=== PATIENT | female | born 1960 | race Caucasian/White ===

== ENCOUNTER 2018-05-11 05:57 | Day surgery (SDC) | payer OTHER ==
[2018-05-11] MEDS ORDERED: Ketamine HCl 50 MG/ML IJ ONE (05:58)
[2018-05-11] MEDS ORDERED: DIPRIVAN 200 MG/20 ML IV ONE (05:58)
[2018-05-11] MEDS ORDERED: Lactated Ringers 1,000 ML IV SCH (06:30)
[2018-05-11 08:22] VITALS: O2SAT 100
[2018-05-11 08:51] VITALS: BP 131/86; PULSE 80
--- NOTE | 2018-05-11 12:33 | OP ---
SURGERY DATE/TIME: 05/11/2018 0658 PREOPERATIVE DIAGNOSIS: Abdominal bloating and screening exam of colon. POSTOPERATIVE DIAGNOSES: 1) Normal EGD. 2) Small polyp in the transverse colon. PROCEDURES: 1) Esophagogastroduodenoscopy. 2) Colonoscopy with biopsy. SURGEON: Dr. Self. ANESTHESIA: Medications were given by the anesthesia department. BRIEF HISTORY: The patient is a 57 year-old white female presenting now for complaints of abdominal discomfort and bloating in the epigastric region. She has not had a previous colon checkup. She was suggested to have screening colon exam during the procedure as well. The patient was appraised of the risks of the procedure including the risk of perforation, phlebitis, untoward reaction to medication, bleeding and missed lesions. The patient verbalized her understanding and desired to have the procedure performed. DESCRIPTION OF PROCEDURE: The patient was given the medications by the anesthesia department. She had continuous pulse oximetry, ECG monitoring, intermittent blood pressure monitoring and tidal CO2 monitoring during the examination. She was placed in the left lateral decubitus position. A bite block was placed and the flexible Olympus gastroscope was used to intubate the oropharynx. The scope was easily introduced in the esophagus which appeared to be normal throughout its length. The stomach was entered where normal gastric rugal folds were seen. The gastric melvin was suctioned dry and stomach was re-insufflated. There was normal distention of the gastric rugal folds with insufflation of air. The scope was passed along the greater curvature of the stomach to the antrum. The pylorus encountered and intubated. The duodenum inspected and found to be normal. The scope is withdrawn towards the stomach. A retroflex view was obtained of the lesser curvature, fundus and cardia regions of the stomach and these appeared to be normal. The scope was then removed from the patient. Next, a digital rectal examination was performed and revealed normal anal sphincter tone. External hemorrhoids were present. No masses were otherwise felt. The flexible Olympus pediatric colonoscope was used to intubate the rectum. A view of the colon was developed sequentially to the cecum. Upon insertion and withdrawal was noted a sessile polyp measuring approximately 0.75 x 1.5 cm. A cold biopsy was used with forceps to remove the polyp piecemeal. No other mucosal lesions being encountered, the scope was removed from the patient who tolerated the procedure well and was sent back to OP recovery in good condition. The prep was noted to be good.
== END 2018-05-11 08:56 | disposition home or self-care (01) ==
LOC: SDC 05:57
PROVIDERS: ATTEND Family Medicine
DX: Z12.11 Encounter for screening for malignant neoplasm of colon (principal); K63.5 Polyp of colon; R14.0 Abdominal distension (gaseous); K64.4 Residual hemorrhoidal skin tags
CPT/HCPCS: J2704

== ENCOUNTER 2020-03-04 11:13 | Emergency (ER) | payer OTHER ==
[2020-03-04 11:33] VITALS: BP 162/96; PULSE 104; O2SAT 99
[2020-03-04] MEDS ORDERED: TRUVADA 200 MG-300 MG TABLET PO STA (11:47)
[2020-03-04] MEDS ORDERED: Adacel Vial IM ONE ×2 (11:48→11:58)
--- NOTE | 2020-03-04 11:55 | ERPHSYRPT ---
- History of Present Illness Time Seen by Provider: 03/04/20 11:35 Source: patient Exam Limitations: no limitations Patient Subjective Stated Complaint: Needle stick Triage Nursing Assessment: Patient ambulated back to ED and transferred self to bed. Patient A+O X3. Patient's skin pink, warm and dry. 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 Patient denies pain or discomfort. 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 No history of any communicable diseases. Complaining of mild pain with palpation and movements. No bleeding. Unsure about tetanus status. Timing/Duration: today Severity: mild Modifying Factors: Improves With: cold therapy, rest. Worsens With: movement Associated Symptoms: denies symptoms Allergies/Adverse Reactions: meloxicam [From [employer]] Allergy (Severe, Verified 03/04/20 11:25) FACIAL SWELLING Home Medications: Alprazolam [Xanax] 0.5 mg PO QIDPRN PRN 07/20/14 [History] Citalopram Hydrobromide [ceLEXa] 20 mg PO DAILY 07/20/14 [History] Nebivolol HCl [Bystolic] 10 mg PO DAILY 07/20/14 [History] Hx Tetanus, Diphtheria Vaccination/Date Given: No Hx Influenza Vaccination/Date Given: Yes (2019) Hx Pneumococcal Vaccination/Date Given: No Immunizations Up to Date: Yes Travel Risk - International Travel Have you traveled outside of the country in past 3 weeks: No - Coronavirus Screening Are you exhibiting any of the following symptoms?: No Close contact with a COVID-19 positive Pt in past 14-21 Days: No - Review of Systems Constitutional: No Symptoms Eyes: No Symptoms Respiratory: No Symptoms Cardiac: No Symptoms Abdominal/Gastrointestinal: No Symptoms Musculoskeletal: No Symptoms Skin: No Symptoms Neurological: No Symptoms Psychological: No Symptoms - Past Medical History Pertinent Past Medical History: Yes Neurological History: No Pertinent History ENT History: No Pertinent History Cardiac History: Hypertension Respiratory History: No Pertinent History Endocrine Medical History: No Pertinent History Musculoskeletal History: No Pertinent History GI Medical History: No Pertinent History History: No Pertinent History Psycho-Social History: Anxiety, Depression Female Reproductive Disorders: No Pertinent History - Past Surgical History Past Surgical History: Yes Neuro Surgical History: No Pertinent History Cardiac: No Pertinent History Respiratory: No Pertinent History Gastrointestinal: Hemorrhoidectomy Genitourinary: No Pertinent History Musculoskeletal: No Pertinent History Female Surgical History: No Pertinent History Other Surgical History: HYMRJOID REMOVAL - Social History Smoking Status: Never smoker Exposure to second hand smoke: No Drug Use: none Patient Lives Alone: No - Female History Hx Now: No - Nursing Vital Signs Nursing Vital Signs: Initial Vital Signs Temperature 97.2 F 03/04/20 11:27 Pulse Rate 104 H 03/04/20 11:27 Respiratory Rate 18 03/04/20 11:27 Blood Pressure 162/96 03/04/20 11:27 O2 Sat by Pulse Oximetry 99 03/04/20 11:27 Pain Scale Pain Intensity 0 - Physical Exam General Appearance: no apparent distress Ears, Nose, Throat Exam: pharynx normal Neck Exam: normal inspection, full range of motion Respiratory Exam: normal breath sounds, lungs clear Cardiovascular Exam: regular rate/rhythm, normal heart sounds Extremity Exam: other (Mild erythema left and distal palm at base of index finger with the prick farhad. Minimal tenderness.) Neurologic Exam: alert, oriented x 3, cooperative Skin Exam: normal color SpO2 Interpretation: normal SpO2: 99 O2 Delivery: Room Air Ordered Tests: Active Orders 24 hr Category Date Time Status Wound Care STAT Care 03/04/20 11:32 Completed Medication Summary Discontinued Medications Generic Name Dose Route Start Last Admin Trade Name Freq PRN Reason Stop Dose Admin Diphtheria/Tetanus/Acell Pertussis 0.5 ml 03/04/20 11:48 03/04/20 11:59 Adacel Vial IM 03/04/20 11:49 0.5 ml .ONCE ONE Administration Diphtheria/Tetanus/Acell Pertussis Confirm 03/04/20 11:58 Adacel Vial Administered 03/04/20 11:59 Dose 0.5 ml IM .STK-MED ONE Emtricitabine/Tenofovir 1 tablet 03/04/20 11:47 03/04/20 12:00 Truvada 200 Mg-300 Mg Tablet PO 03/04/20 11:48 Not Given STAT STA Emtricitabine/Tenofovir 2 tablet 03/05/20 10:00 03/04/20 12:01 Truvada 200 Mg-300 Mg Tablet PO 03/06/20 10:01 2 tablet DAILY RAY Administration Raltegravir 400 mg 03/04/20 12:00 03/04/20 12:01 Isentress PO 04/03/20 11:59 400 mg STAT RAY Administration Raltegravir 400 mg 03/04/20 22:00 03/04/20 12:00 Isentress PO 03/06/20 22:01 400 mg BID RAY Administration - Progress Progress: unchanged Progress Note: 03/04/20 11:49 She is started on Isentress and Truvada per protocol and lab work is drawn. Patient is advised to follow-up with primary care and employee health. Counseled pt/family regarding: lab results, diagnosis, need for follow-up - Departure Departure Disposition: Home Clinical Impression: Needle stick injury of finger of left hand Condition: Stable Critical Care Time: No Referrals: ANDRES MURILLO, [ACTIVE STAFF] - (tomorrow for re evaluation) Instructions: Blood or Body Fluid Exposure Additional Instructions: Follow-up with your primary care physician and employee health for reevaluation. Continue with these medications until you see them in 2 days. Return to ER for any worsening.
[2020-03-04] MEDS ORDERED: ISENTRESS PO SCH ×2 (12:00→22:00)
[2020-03-05] MEDS ORDERED: TRUVADA 200 MG-300 MG TABLET PO SCH (10:00)
== END 2020-03-04 12:05 | disposition home or self-care (01) ==
LOC: ER - EH 11:13
DX: S61.231A Puncture wound without foreign body of left index finger without damage to nail, initial encounter (principal); W46.0XXA Contact with hypodermic needle, initial encounter; Y92.238 Other place in hospital as the place of occurrence of the external cause; Y99.0 Civilian activity done for income or pay
CPT/HCPCS: 36415; 86317; 86701; 86702; 86803; 87340; 87389; 87535; 90471; 90715; 99283

== ENCOUNTER 2020-04-30 09:53 | Emergency (ER) | payer OTHER ==
[2020-04-30] MEDS ORDERED: Sodium Chloride 0.9% 1000 ML 1,000 ML ONE (10:12)
[2020-04-30] MEDS ORDERED: Sodium Chloride 0.9% 1000 ML 1,000 ML IV SCH (10:15)
--- NOTE | 2020-04-30 10:15 | ERPHSYRPT ---
- History of Present Illness Time Seen by Provider: 04/30/20 10:00 Source: patient Patient Subjective Stated Complaint: pt here at work and started feeling like heart was racing,light headed. she states it happened at home today before wokr but went away on own Triage Nursing Assessment: pt alert, resp easy, face mask in place, walked in. skin w/d/p Physician History: Patient is a 59-year-old female who presents to our ED with complaints of near syncope and heart palpitations. Symptoms started yesterday. Patient states she felt dizzy yesterday. Today patient experienced heart palpitations lightheadedness and shortness of breath. Symptoms started this morning and persisted. No actual syncopal episode. No nausea or vomiting. No diarrhea. No rash. Patient denies [place] chest pain. Patient symptoms are mild to moderate in intensity. No specific worsening or improving factors. Patient voices no other complaints or concerns at this time. Timing/Duration: yesterday Severity: moderate Modifying Factors: Improves With: nothing Associated Symptoms: shortness of breath, No cough, No chills, No chest pain, No loss of appetite Allergies/Adverse Reactions: meloxicam [From [email or web address]] Allergy (Severe, Verified 04/30/20 10:02) FACIAL SWELLING Home Medications: Alprazolam [Xanax] 0.5 mg PO QIDPRN PRN 07/20/14 [History] Citalopram Hydrobromide [ceLEXa] 20 mg PO DAILY 07/20/14 [History] Amlodipine Besylate 1 ea DAILY 04/30/20 [History] Quetiapine Fumarate 1 ea DAILY 04/30/20 [History] Hx Tetanus, Diphtheria Vaccination/Date Given: No Hx Influenza Vaccination/Date Given: Yes Hx Pneumococcal Vaccination/Date Given: No Immunizations Up to Date: Yes Travel Risk - International Travel Have you traveled outside of the country in past 3 weeks: No - Coronavirus Screening Are you exhibiting any of the following symptoms?: No Close contact with a COVID-19 positive Pt in past 14-21 Days: No - Review of Systems Constitutional: No Symptoms, No Fever, No Chills Eyes: No Symptoms Ears, Nose, & Throat: No Symptoms Respiratory: No Symptoms, No Cough, No Dyspnea Cardiac: No Symptoms, No Chest Pain, No Edema, No Syncope Abdominal/Gastrointestinal: No Symptoms, No Abdominal Pain, No Nausea, No Vomiting, No Diarrhea Genitourinary Symptoms: No Symptoms, No Dysuria Musculoskeletal: No Symptoms, No Back Pain, No Neck Pain Skin: No Symptoms, No Rash Neurological: No Symptoms, No Dizziness, No Focal Weakness, No Sensory Changes Psychological: No Symptoms Endocrine: No Symptoms Hematologic/Lymphatic: No Symptoms Immunological/Allergic: No Symptoms All Other Systems: Reviewed and Negative - Past Medical History Pertinent Past Medical History: Yes Neurological History: No Pertinent History ENT History: No Pertinent History Cardiac History: High Cholesterol, Hypertension Respiratory History: No Pertinent History Endocrine Medical History: No Pertinent History Musculoskeletal History: No Pertinent History GI Medical History: No Pertinent History History: No Pertinent History Psycho-Social History: Anxiety, Depression Female Reproductive Disorders: No Pertinent History - Past Surgical History Past Surgical History: Yes Neuro Surgical History: No Pertinent History Cardiac: No Pertinent History Respiratory: No Pertinent History Gastrointestinal: Hemorrhoidectomy Genitourinary: No Pertinent History Musculoskeletal: No Pertinent History Female Surgical History: No Pertinent History Other Surgical History: HYMRJOID REMOVAL - Social History Smoking Status: Never smoker Exposure to second hand smoke: No Drug Use: none Patient Lives Alone: No - Female History Hx Last Menstrual Period: post Hx Now: No - Nursing Vital Signs Nursing Vital Signs: Initial Vital Signs Temperature 98.4 F 04/30/20 09:57 Pulse Rate 150 H 04/30/20 09:57 Respiratory Rate 18 04/30/20 09:57 Blood Pressure 105/83 04/30/20 09:57 O2 Sat by Pulse Oximetry 100 04/30/20 09:57 Pain Scale Pain Intensity 0 - Physical Exam General Appearance: no apparent distress, alert Eye Exam: PERRL/EOMI, eyes nml inspection Ears, Nose, Throat Exam: normal ENT inspection, TMs normal, pharynx normal, moist mucous membranes Neck Exam: normal inspection, non-tender, supple, full range of motion Respiratory Exam: normal breath sounds, lungs clear, No respiratory distress Cardiovascular Exam: normal heart sounds, normal peripheral pulses, other (She has a resting tachycardia. Peripheral pulses are bilaterally equal.) Gastrointestinal/Abdomen Exam: soft, normal bowel sounds, No tenderness, No mass Back Exam: normal inspection, normal range of motion, No CVA tenderness, No vertebral tenderness Extremity Exam: normal inspection, normal range of motion, pelvis stable Neurologic Exam: alert, oriented x 3, cooperative, normal mood/affect, sensation nml, No motor deficits Skin Exam: normal color, warm, dry, No rash Lymphatic Exam: No adenopathy SpO2 Interpretation: normal SpO2: 100 O2 Delivery: Room Air - Course Nursing assessment & vital signs reviewed: Yes EKG Interpreted by Me: RATE ([id number]), Sinus Tach, NORMAL AXIS, NORMAL INTERVALS - Radiology Exams Chest X-ray Interpretation: Teleradiologist Report (Portable chest x-ray unchanged demonstrating minimal right upper lobe fibrosis scarring. Remaining heart and lungs are unremarkable. Bony thorax intact. No new acute findings.) Ordered Tests: Active Orders 24 hr Category Date Time Status Combination Building Inspector STAT Care 04/30/20 10:09 Active EKG-ER Only STAT Care 04/30/20 10:08 Active IV Insertion STAT Care 04/30/20 10:08 Active Pulse Oximetry (ED) STAT Care 04/30/20 10:08 Active CHEST 1 VIEW (PORTABLE) Stat Exams 04/30/20 11:04 Completed CBC W DIFF Stat Lab 04/30/20 10:00 Completed CMP Stat Lab 04/30/20 10:00 Completed D-DIMER QUANTITATIVE Stat Lab 04/30/20 10:00 Completed MAGNESIUM Stat Lab 04/30/20 10:00 Completed TROPONIN Q3H Lab 04/30/20 10:00 Completed TROPONIN Q3H Lab 04/30/20 13:15 Ordered TROPONIN Q3H Lab 04/30/20 16:15 Ordered TROPONIN Q3H Lab 04/30/20 19:15 Ordered TROPONIN Q3H Lab 04/30/20 22:15 Ordered TSH, 3RD Generation Stat Lab 04/30/20 10:00 Completed UA W/RFX UR CULTURE Stat Lab 04/30/20 11:00 Completed Medication Summary Generic Name Dose Route Start Last Admin Trade Name Freq PRN Reason Stop Dose Admin Sodium Chloride 1,000 mls @ 100 mls/hr 04/30/20 10:15 04/30/20 10:13 Sodium Chloride 0.9% 1000 Ml IV 05/30/20 10:14 100 mls/hr .Q10H RAY Administration Magnesium Sulfate/Dextrose 100 mls @ 100 mls/hr 04/30/20 11:45 04/30/20 13:00 Magnesium 1 Gm / 100 Ml D5w IV 04/30/20 13:44 100 mls/hr Q1H RAY Administration Discontinued Medications Generic Name Dose Route Start Last Admin Trade Name Patricia PRN Reason Stop Dose Admin Potassium Chloride 40 meq 04/30/20 11:33 04/30/20 11:37 Klor Con 10 Meq PO 04/30/20 11:34 40 meq STAT ONE Administration Potassium Chloride Confirm 04/30/20 11:37 Klor Con 10 Meq Administered 04/30/20 11:38 Dose 40 meq PO .STK-MED ONE Lab/Rad Data: Laboratory Result Diagrams 04/30/20 10:00 04/30/20 10:00 Laboratory Results 04/30/20 04/30/20 04/30/20 Range/Units 11:00 10:00 10:00 WBC (4.0-10.5) K/mm3 RBC (4.1-5.4) M/mm3 Hgb (12.0-16.0) gm/dl Hct (35-47) % MCV (78-100) fl MCH (26-32) pg MCHC (32-36) g/dl RDW (11.5-14.0) % Plt Count (150-450) K/mm3 MPV (7.5-11.0) fl Gran % (36.0-66.0) % Eos # (Auto) (0-0.5) Absolute Lymphs (auto) (1.0-4.6) Absolute Monos (auto) (0.0-1.3) Lymphocytes % (24.0-44.0) % Monocytes % (0.0-12.0) % Eosinophils % (0.00-5.0) % Basophils % (0.0-0.4) % Absolute Granulocytes (1.4-6.9) Basophils # (0-0.4) D-Dimer < 215 L (215-500) ng/mL Sodium (137-145) mmol/L Potassium (3.5-5.1) mmol/L Chloride (98-107) mmol/L Carbon Dioxide (22-30) mmol/L Anion Gap (5-15) MEQ/L BUN (7-17) mg/dL Creatinine (0.52-1.04) mg/dL Estimated GFR ML/MIN Glucose (74-106) mg/dL Calcium (8.4-10.2) mg/dL Magnesium (1.6-2.3) mg/dL Total Bilirubin (0.2-1.3) mg/dL AST (14-36) U/L ALT (0-35) U/L Alkaline Phosphatase (38-126) U/L Troponin I < 0.012 (0.000-0.034) ng/mL Serum Total Protein (6.3-8.2) g/dL Albumin (3.5-5.0) g/dL TSH 3rd Generation (0.47-4.68) mIU/L Urine Color YELLOW (YELLOW) Urine Appearance CLEAR (CLEAR) Urine pH 5.0 (5-6) Ur Specific [place] 1.005 (1.005-1.025) Urine Protein NEGATIVE (Negative) Urine Ketones NEGATIVE (NEGATIVE) Urine Blood NEGATIVE (0-5) Pio/ul Urine Nitrite NEGATIVE (NEGATIVE) Urine Bilirubin NEGATIVE (NEGATIVE) Urine Urobilinogen NEGATIVE (0-1) mg/dL Ur Leukocyte Esterase NEGATIVE (NEGATIVE) Urine WBC (Auto) 3-5 (0-5) /HPF Urine RBC (Auto) NONE (0-2) /HPF U Hyaline Cast (Auto) 6-10 (0-2) /LPF U Epithel Cells (Auto) NONE (FEW) /HPF Urine Bacteria (Auto) NONE (NEGATIVE) /HPF Urine Mucus (Auto) SLIGHT (NEGATIVE) /HPF Urine Culture Reflexed NO (NO) Urine Glucose NEGATIVE (NEGATIVE) mg/dL 04/30/20 04/30/20 Range/Units 10:00 10:00 WBC 8.0 (4.0-10.5) K/mm3 RBC 4.83 (4.1-5.4) M/mm3 Hgb 15.5 (12.0-16.0) gm/dl Hct 48.3 H (35-47) % MCV 100.0 (78-100) fl MCH 32.1 H (26-32) pg MCHC 32.1 (32-36) g/dl RDW 13.5 (11.5-14.0) % Plt Count 381 (150-450) K/mm3 MPV 10.5 (7.5-11.0) fl Gran % 72.5 H (36.0-66.0) % Eos # (Auto) 0.10 (0-0.5) Absolute Lymphs (auto) 1.50 (1.0-4.6) Absolute Monos (auto) 0.57 (0.0-1.3) Lymphocytes % 18.7 L (24.0-44.0) % Monocytes % 7.1 (0.0-12.0) % Eosinophils % 1.2 (0.00-5.0) % Basophils % 0.5 (0.0-0.4) % Absolute Granulocytes 5.80 (1.4-6.9) Basophils # 0.04 (0-0.4) D-Dimer (215-500) ng/mL Sodium 135 L (137-145) mmol/L Potassium 3.0 L (3.5-5.1) mmol/L Chloride 102 (98-107) mmol/L Carbon Dioxide 22 (22-30) mmol/L Anion Gap 13.9 (5-15) MEQ/L BUN 26 H (7-17) mg/dL Creatinine 1.47 H (0.52-1.04) mg/dL Estimated GFR 38.9 ML/MIN Glucose 168 H (74-106) mg/dL Calcium 10.3 H (8.4-10.2) mg/dL Magnesium 1.6 (1.6-2.3) mg/dL Total Bilirubin 0.80 (0.2-1.3) mg/dL AST 25 (14-36) U/L ALT 14 (0-35) U/L Alkaline Phosphatase 79 (38-126) U/L Troponin I (0.000-0.034) ng/mL Serum Total Protein 8.2 (6.3-8.2) g/dL Albumin 4.7 (3.5-5.0) g/dL TSH 3rd Generation 4.580 (0.47-4.68) mIU/L Urine Color (YELLOW) Urine Appearance (CLEAR) Urine pH (5-6) Ur Specific [place] (1.005-1.025) Urine Protein (Negative) Urine Ketones (NEGATIVE) Urine Blood (0-5) Pio/ul Urine Nitrite (NEGATIVE) Urine Bilirubin (NEGATIVE) Urine Urobilinogen (0-1) mg/dL Ur Leukocyte Esterase (NEGATIVE) Urine WBC (Auto) (0-5) /HPF Urine RBC (Auto) (0-2) /HPF U Hyaline Cast (Auto) (0-2) /LPF U Epithel Cells (Auto) (FEW) /HPF Urine Bacteria (Auto) (NEGATIVE) /HPF Urine Mucus (Auto) (NEGATIVE) /HPF Urine Culture Reflexed (NO) Urine Glucose (NEGATIVE) mg/dL - Progress Progress: improved Progress Note: 04/30/20 13:[address] Vargas. Our plan was to rehydrate patient replace electrolytes and reassess. Upon rehydration tachycardia resolved. Patient feels well. No indication for further work-up at this time. Will discharge home. Patient agrees to follow-up with Dr. Vargas within 48 hours for reevaluation. Patient voices no other complaints or concerns at this time. - Departure Departure Disposition: Home Clinical Impression: Hypokalemia, Tachycardia, Acute renal injury, Dehydration Condition: Stable Critical Care Time: No Referrals: EMPLOYEE [facility] [facility] [LOCATION] - Additional Instructions: Discharge/Care Plan SMILEY CULVER was seen on 04/30/20 in the Emergency Room. The patient was counseled regarding Diagnosis,Lab results, Imaging studies, need for follow up and when to return to the Emergency Room. Prescriptions given: Discharge Note I have spoken with the patient and/or caregivers. I have explained the patient's condition, diagnosis and treatment plan based on the information available to me at this time. I have answered the patient's and/or caregiver's questions and addressed any concerns. The patient and/or caregivers have as good understanding of the patient's diagnosis, condition and treatment plan as can be expected at this point. The vital signs have been stable. The patient's condition is stable and appropriate for discharge from the emergency department. The patient will pursue further outpatient evaluation with the primary care ph ysician or other designated or consulting physician as outlined in the discharge instructions. The patient and/or caregivers are agreeable to this plan of care and follow-up instructions have been explained in detail. The patient and/or caregivers have received these instruction. The patient/and or caregivers are aware that any significant change in condition or worsening of symptoms should prompt an immediate return to this or the closest emergency department or call 911.
[2020-04-30 10:33] LABS: BASOPHIL % 0.5 % (0.0-0.4); Basophil (Absolute #) 0.04 (0-0.4); Eosinophil % 1.2 % (0.00-5.0); Hematocrit 48.3 % (35-47); Hemoglobin 15.5 gm/dl (12.0-16.0); Lymphocytes % 18.7 % (24.0-44.0); Mean Corpuscular Hemoglobin 32.1 pg (26-32); Mean Corpuscular Hgb Concent. 32.1 g/dl (32-36); Mean Platelet Volume 10.5 fl (7.5-11.0); Monocyte (Absolute #) 0.57 (0.0-1.3); Monocytes % 7.1 % (0.0-12.0); Neutrophil % 72.5 % (36.0-66.0); Platelet Count 381 K/mm3 (150-450); Red Blood Count 4.83 M/mm3 (4.1-5.4); Red Cell Distribution Width 13.5 % (11.5-14.0)
[2020-04-30 11:10] LABS: ALBUMIN 4.7 g/dL (3.5-5.0); ANION GAP 13.9 MEQ/L (5-15); BILIRUBIN,TOTAL 0.8 mg/dL (0.2-1.3); Calcium 10.3 mg/dL (8.4-10.2); Creatinine 1 1.47 mg/dL (0.52-1.04); EST GLOMERULAR FILTRATION RATE 38.9 ML/MIN; MAGNESIUM 1.6 mg/dL (1.6-2.3); TSH, 3RD Generation 4.58 mIU/L (0.47-4.68); Total Protein 8.2 g/dL (6.3-8.2)
[2020-04-30 11:16] LABS: Appearance CLEAR (CLEAR); Bilirubin NEGATIVE (NEGATIVE); Blood NEGATIVE Ery/ul (0-5); Glucose NEGATIVE (NEGATIVE); Ketones NEGATIVE (NEGATIVE); Leukocyte Esterase NEGATIVE (NEGATIVE); Mucus SLIGHT /HPF (NEGATIVE); Nitrite NEGATIVE (NEGATIVE); Protein,Urine Dip NEGATIVE (Negative); Specific Gravity 1.005 (1.005-1.025); Urobilinogen NEGATIVE mg/dL (0-1)
[2020-04-30] MEDS ORDERED: Klor Con 10 MEQ PO ONE ×2 (11:33→11:37)
[2020-04-30] MEDS ORDERED: Magnesium 1 Gm / 100 Ml D5W*** 100 ML IV ONE ×2 (11:59→12:59)
[2020-04-30] MEDS: Magnesium 1 Gm / 100 Ml D5W*** 100 ML IV SCH ×2 (12:00→13:00)
[2020-04-30 12:36] VITALS: O2SAT 100
--- NOTE | 2020-04-30 12:42 | XRAY ---
Indication: Short of breath. Tachycardia. Comparison: September 16, 2018. Portable chest unchanged again demonstrating minimal right upper lung fibrosis/scarring. Remaining heart and lungs unremarkable. Bony thorax intact. No new/acute findings.
[2020-04-30 13:37] VITALS: BP 136/92; PULSE 91
== END 2020-04-30 13:30 | disposition home or self-care (01) ==
LOC: ED 09:53
DX: E87.6 Hypokalemia (principal); R00.0 Tachycardia, unspecified; N17.9 Acute kidney failure, unspecified; E86.0 Dehydration
CPT/HCPCS: 36000; 36415; 71045; 80053; 81001; 83735; 84443; 84484; 85025; 85379; 93005; 93041; 94760; 96360; 96361; 96365; 96366; 99284; J3475; A9270-GY

== ENCOUNTER 2020-07-31 08:50 | Emergency (ER) | payer OTHER ==
[2020-07-31] MEDS ORDERED: Sodium Chloride 0.9% 1000 ML 1,000 ML IV STA ×2 (09:32→10:56)
[2020-07-31] MEDS ORDERED: Sodium Chloride 0.9% 1000 ML 1,000 ML ONE ×2 (09:46→10:54)
--- NOTE | 2020-07-31 09:47 | ERPHSYRPT ---
- History of Present Illness Source: patient Exam Limitations: no limitations Patient Subjective Stated Complaint: Pt's heart rate was elevated and she became dizzy while at work Triage Nursing Assessment: Pt working here at [employer] and became dizzy when her heart rate became elevated, tachycardic, denies pain, denies numbness or tingling, skin n/w/d, pulses normal, denies hx of heart issues, doesn't appear to be in any distress Physician History: 59 yo wf w lightheadedness x3.5hr. 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 She was also mildly dizzy but denies chest pain/focal weakness/N/V/melena/hematochezia. Pt states that she is mildly dyspneic and has been mild diaphoretic. She ran out of her Bystolic on 07/27/20 and has taken Norvasc x2 days which was an old Rx. She had similar symptoms when taking Norvasc in the past. Pt tachycardic at 120 w systolic BP of 92. Timing/Duration: hour(s) (3.5Hr) Severity: mild Baseline/Normal Cognition: alert oriented x 3 Current Cognition: alert oriented x 3 Baseline Gait: walks w/o assistance Associated Symptoms: No confusion, No fatigue, No fever, No chills, No loss of consciousness, No nausea, No vomiting, No weakness, No insomnia, No muscle spasms, No numbness/tingling in legs/feet, No paresthesia, No ringing in ears, No seizures, No slurred speech, No trouble walking, No vision changes, No chest pain, No headache Allergies/Adverse Reactions: meloxicam [From Mobic] Allergy (Severe, Verified 07/31/20 09:00) FACIAL SWELLING Home Medications: Alprazolam [Xanax] 0.5 mg PO QIDPRN PRN 07/20/14 [History] Citalopram Hydrobromide [ceLEXa] 20 mg PO DAILY 07/20/14 [History] Cyclobenzaprine HCl 10 mg [Cyclobenzaprine 10 MG] 20 mg PO DAILY 07/31/20 [History] Levothyroxine Sodium 50 Mcg [Synthroid 50 Mcg] 50 mcg PO DAILY 07/31/20 [History] Nebivolol HCl [Bystolic] 2.5 mg PO DAILY 07/31/20 [History] Hx Tetanus, Diphtheria Vaccination/Date Given: No Hx Influenza Vaccination/Date Given: Yes Hx Pneumococcal Vaccination/Date Given: No Travel Risk - International Travel Have you traveled outside of the country in past 3 weeks: No - Coronavirus Screening Are you exhibiting any of the following symptoms?: No Close contact with a COVID-19 positive Pt in past 14-21 Days: No - Review of Systems Constitutional: No Symptoms Eyes: No Symptoms Ears, Nose, & Throat: No Symptoms Respiratory: Dyspnea (Mild) Cardiac: No Symptoms Abdominal/Gastrointestinal: No Symptoms Genitourinary Symptoms: No Symptoms Musculoskeletal: No Symptoms Skin: No Symptoms Neurological: Other (Lightheadedness/Mild diaphoresis) Psychological: No Symptoms Endocrine: No Symptoms Hematologic/Lymphatic: No Symptoms Immunological/Allergic: No Symptoms - Past Medical History Pertinent Past Medical History: Yes Neurological History: No Pertinent History ENT History: No Pertinent History Cardiac History: High Cholesterol, Hypertension Respiratory History: No Pertinent History Endocrine Medical History: No Pertinent History Musculoskeletal History: No Pertinent History GI Medical History: No Pertinent History History: No Pertinent History Psycho-Social History: Anxiety, Depression Female Reproductive Disorders: No Pertinent History - Past Surgical History Past Surgical History: Yes Neuro Surgical History: No Pertinent History Cardiac: No Pertinent History Respiratory: No Pertinent History Gastrointestinal: Hemorrhoidectomy Genitourinary: No Pertinent History Musculoskeletal: No Pertinent History Female Surgical History: No Pertinent History Other Surgical History: HYMRJOID REMOVAL - Social History Smoking Status: Never smoker Exposure to second hand smoke: No Drug Use: none Patient Lives Alone: No Significant Family History: no pertinent family hx - Female History Hx Now: No - Nursing Vital Signs Nursing Vital Signs: Initial Vital Signs Pulse Rate 138 H 07/31/20 08:54 Blood Pressure 121/88 07/31/20 08:54 O2 Sat by Pulse Oximetry 98 07/31/20 08:54 Pain Scale Pain Intensity 0 - [place] Coma Scale Best Eye Response ([place]): (4) open spontaneously Best Verbal Response ([place]): (5) oriented Best Motor Response ([place]): (6) obeys commands [place] Total: 15 - Physical Exam General Appearance: no apparent distress Eye Exam: bilateral eye: normal inspection, PERRL, EOMI Ears, Nose, Throat Exam: normal ENT inspection, TMs normal, pharynx normal, moist mucous membranes Neck Exam: normal inspection, non-tender, supple, full range of motion, No meningismus, No mass, No Brudzinski, No Kernig's Respiratory: normal breath sounds, lungs clear, airway intact Cardiovascular: regular rate/rhythm, normal heart sounds, normal peripheral pulses, No murmur Gastrointestinal: soft, normal bowel sounds, No tenderness Pelvic Exam: not done Back Exam: normal inspection, normal range of motion, No CVA tenderness, No vertebral tenderness Extremity Exam: normal inspection, normal range of motion Peripheral Pulses: carotid (R): 2+, carotid (L): 2+ Mental Status: alert, oriented x 3, cooperative, No agitated card maker Exam: normal hearing, normal speech, PERRL, No abnormal gag reflex Coordination/Gait: normal finger to nose, normal gait, normal cerebellar function, negative Romberg's sign Motor/Sensory: no motor deficit, no sensory deficit, no pronator drift, negative Babinski's sign DTR: bicep (R): 2+, bicep (L): 2+, knee (R): 2+, knee (L): 2+ Skin Exam: normal color, warm, dry, No rash SpO2 Interpretation: normal SpO2: 98 O2 Delivery: Room Air - Course EKG Interpreted by Me: RATE (Sinus tach/Normal QT-QTc/Non-specific ST-T wave changes) - Radiology Exams Chest X-ray Interpretation: Discussed w/ radiologist (Nothing acute) - CT Exams Head CT Interpretation: Discussed w/radiologist (Nothing acute) Ordered Tests: Active Orders 24 hr Category Date Time Status 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 STAT Care 07/31/20 09:33 Completed IV Insertion STAT Care 07/31/20 09:32 Completed CHEST 1 VIEW (PORTABLE) Stat Exams 07/31/20 09:33 Completed HEAD WITHOUT CONTRAST [CT] Stat Exams 07/31/20 09:34 Completed CBC W DIFF Stat Lab 07/31/20 09:46 Completed CMP Stat Lab 07/31/20 09:46 Completed NT PRO BNP Stat Lab 07/31/20 09:46 Completed PROTIME WITH INR Stat Lab 07/31/20 09:46 Completed PTT Stat Lab 07/31/20 09:46 Completed TROPONIN Q3H Lab 07/31/20 09:46 Completed TROPONIN Q3H Lab 07/31/20 13:00 Completed Medication Summary Discontinued Medications Generic Name Dose Route Start Last Admin Trade Name Patricia PRN Reason Stop Dose Admin Sodium Chloride 1,000 mls @ 999 mls/hr 07/31/20 09:32 07/31/20 10:53 Sodium Chloride 0.9% 1000 Ml IV 07/31/20 10:32 Infused .Q1H1M STA Infusion Sodium Chloride Confirm 07/31/20 09:46 Sodium Chloride 0.9% 1000 Ml Administered 07/31/20 09:47 Dose 1,000 mls @ ud .ROUTE .STK-MED ONE Sodium Chloride Confirm 07/31/20 10:54 Sodium Chloride 0.9% 1000 Ml Administered 07/31/20 10:55 Dose 1,000 mls @ ud .ROUTE .STK-MED ONE Sodium Chloride 1,000 mls @ 999 mls/hr 07/31/20 10:56 07/31/20 12:21 Sodium Chloride 0.9% 1000 Ml IV 07/31/20 11:56 Infused .Q1H1M STA Infusion Lab/Rad Data: Laboratory Result Diagrams 07/31/20 09:46 07/31/20 09:46 Laboratory Results 07/31/20 07/31/20 07/31/20 Range/Units 13:00 09:46 09:46 WBC (4.0-10.5) K/mm3 RBC (4.1-5.4) M/mm3 Hgb (12.0-16.0) gm/dl Hct (35-47) % MCV (78-100) fl MCH (26-32) pg MCHC (32-36) g/dl RDW (11.5-14.0) % Plt Count (150-450) K/mm3 MPV (7.5-11.0) fl Gran % (36.0-66.0) % Eos # (Auto) (0-0.5) Absolute Lymphs (auto) (1.0-4.6) Absolute Monos (auto) (0.0-1.3) Lymphocytes % (24.0-44.0) % Monocytes % (0.0-12.0) % Eosinophils % (0.00-5.0) % Basophils % (0.0-0.4) % Absolute Granulocytes (1.4-6.9) Basophils # (0-0.4) PT 10.6 (9.95-12.35) SECONDS INR 0.94 (0.8-3.0) APTT 29.1 (25.3-37.0) SECONDS Sodium (137-145) mmol/L Potassium (3.5-5.1) mmol/L Chloride (98-107) mmol/L Carbon Dioxide (22-30) mmol/L Anion Gap (5-15) MEQ/L BUN (7-17) mg/dL Creatinine (0.52-1.04) mg/dL Estimated GFR ML/MIN Glucose (74-106) mg/dL Calcium (8.4-10.2) mg/dL Total Bilirubin (0.2-1.3) mg/dL AST (14-36) U/L ALT (0-35) U/L Alkaline Phosphatase (38-126) U/L Troponin I < 0.012 < 0.012 (0.000-0.034) ng/mL NT-Pro-B Natriuret Pep (0-900) pg/mL Serum Total Protein (6.3-8.2) g/dL Albumin (3.5-5.0) g/dL 07/31/20 07/31/20 Range/Units 09:46 09:46 WBC 7.3 (4.0-10.5) K/mm3 RBC 4.46 (4.1-5.4) M/mm3 Hgb 14.3 (12.0-16.0) gm/dl Hct 47.1 H (35-47) % MCV 105.6 H (78-100) fl MCH 32.1 H (26-32) pg MCHC 30.4 L (32-36) g/dl RDW 13.6 (11.5-14.0) % Plt Count 297 (150-450) K/mm3 MPV 10.9 (7.5-11.0) fl Gran % 68.6 H (36.0-66.0) % Eos # (Auto) 0.11 (0-0.5) Absolute Lymphs (auto) 1.54 (1.0-4.6) Absolute Monos (auto) 0.62 (0.0-1.3) Lymphocytes % 21.0 L (24.0-44.0) % Monocytes % 8.5 (0.0-12.0) % Eosinophils % 1.5 (0.00-5.0) % Basophils % 0.4 (0.0-0.4) % Absolute Granulocytes 5.03 (1.4-6.9) Basophils # 0.03 (0-0.4) PT (9.95-12.35) SECONDS INR (0.8-3.0) APTT (25.3-37.0) SECONDS Sodium 138 (137-145) mmol/L Potassium 4.1 (3.5-5.1) mmol/L Chloride 105 (98-107) mmol/L Carbon Dioxide 26 (22-30) mmol/L Anion Gap 12.0 (5-15) MEQ/L BUN 18 H (7-17) mg/dL Creatinine 1.47 H (0.52-1.04) mg/dL Estimated GFR 38.9 ML/MIN Glucose 106 (74-106) mg/dL Calcium 10.5 H (8.4-10.2) mg/dL Total Bilirubin 0.20 (0.2-1.3) mg/dL AST 20 (14-36) U/L ALT 11 (0-35) U/L Alkaline Phosphatase 73 (38-126) U/L Troponin I (0.000-0.034) ng/mL NT-Pro-B Natriuret Pep 54.5 (0-900) pg/mL Serum Total Protein 7.3 (6.3-8.2) g/dL Albumin 4.4 (3.5-5.0) g/dL - Progress Progress: improved Progress Note: 07/31/20 13:09 Pt given 2L NS bolus x2 w improvement in BP and decrease in HR Pt instructed to DC Norvasc and restart Bystolic Counseled pt/family regarding: lab results, diagnosis, need for follow-up, rad results - Departure Departure Disposition: Home Clinical Impression: Hypotension, Mild prerenal azotemia, Norvasc side effect Condition: Stable Critical Care Time: No Referrals: MURPHY HILL MD [Primary Care Provider] - Instructions: Dizziness, Nonvertigo, (DC), Near Fainting (DC) Additional Instructions: Stop Norvasc and start Bystolic Follow up with your family MD Return to ER for chest pain/focal weakness/shortness of breath
[2020-07-31 09:52] LABS: Absolute Neutrophil Ct (ANC) 5.03 (1.4-6.9); BASOPHIL % 0.4 % (0.0-0.4); Basophil (Absolute #) 0.03 (0-0.4); Eosinophil % 1.5 % (0.00-5.0); Eosinophil (Absolute #) 0.11 (0-0.5); Hematocrit 47.1 % (35-47); Hemoglobin 14.3 gm/dl (12.0-16.0); Lymphocyte (Absolute #) 1.54 (1.0-4.6); Mean Cell Volume 105.6 fl (78-100); Mean Corpuscular Hemoglobin 32.1 pg (26-32); Mean Corpuscular Hgb Concent. 30.4 g/dl (32-36); Mean Platelet Volume 10.9 fl (7.5-11.0); Monocyte (Absolute #) 0.62 (0.0-1.3); Monocytes % 8.5 % (0.0-12.0); Neutrophil % 68.6 % (36.0-66.0); Platelet Count 297 K/mm3 (150-450); Red Blood Count 4.46 M/mm3 (4.1-5.4); Red Cell Distribution Width 13.6 % (11.5-14.0); White Blood Count 7.3 K/mm3 (4.0-10.5)
--- NOTE | 2020-07-31 10:01 | XRAY ---
Indication: Dizziness, low blood pressure, and tachycardia. Multiple contiguous images obtained through the head without contrast. Comparison: None Normal appearing brain parenchyma, ventricles, and bony calvarium for patient's age. Visualized paranasal sinuses and mastoid air cells are clear. Impression: Normal CT head without contrast exam.
--- NOTE | 2020-07-31 10:03 | XRAY ---
Indication: Tachycardia and dizziness. Comparison: July 25, 2020. Portable chest unchanged again hyperinflated with minimal right upper lobe fibrosis/scarring. Remaining heart, lungs, and bony thorax normal.
[2020-07-31 10:13] LABS: INR 0.94 (0.8-3.0); PROTIME 10.6 SECONDS (9.95-12.35)
[2020-07-31 10:16] LABS: PTT 29.1 SECONDS (25.3-37.0)
[2020-07-31 10:26] LABS: ALBUMIN 4.4 g/dL (3.5-5.0); BILIRUBIN,TOTAL 0.2 mg/dL (0.2-1.3); Calcium 10.5 mg/dL (8.4-10.2); Creatinine 1 1.47 mg/dL (0.52-1.04); EST GLOMERULAR FILTRATION RATE 38.9 ML/MIN; NT PRO BNP 54.5 pg/mL (0-900); Potassium 4.1 mmol/L (3.5-5.1); Total Protein 7.3 g/dL (6.3-8.2)
[2020-07-31 12:27] VITALS: BP 111/77; PULSE 89
[2020-07-31 13:13] VITALS: O2SAT 98
== END 2020-07-31 13:19 | disposition home or self-care (01) ==
LOC: ED 08:50
DX: I95.9 Hypotension, unspecified (principal); R39.2 Extrarenal uremia; T46.1X5A Adverse effect of calcium-channel blockers, initial encounter; R42 Dizziness and giddiness; R00.0 Tachycardia, unspecified; Z79.899 Other long term (current) drug therapy
CPT/HCPCS: 36000; 36415; 70450; 71045; 80053; 83880; 84484; 85025; 85610; 85730; 93041; 96360; 99284